=== PATIENT | female | born 1930 | race Caucasian/White ===

== ENCOUNTER 2018-01-18 21:21 | Emergency (ER) | payer OTHER ==
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
[2018-01-18 22:05] LABS: PLATELET COUNT 283 10^3/uL (150-400)
--- NOTE | 2018-01-18 22:45 | CPEKG ---
Test Reason : OPEN Blood Pressure : / mmHG Vent. Rate : 096 BPM Atrial Rate : 095 BPM P-R Int : 144 ms QRS Dur : 077 ms QT Int : 339 ms P-R-T Axes : 055 -21 040 degrees QTc Int : 429 ms Sinus rhythm Probable left atrial enlargement Borderline left axis deviation Abnormal R-wave progression, early transition Confirmed by Yahaira Barboza ([id number]) on 01/18/2018 10:45:05 PM Referred By: Confirmed By:Yahaira Barboza
[2018-01-18 23:54] VITALS: BP 170/87
== END 2018-01-18 23:55 | disposition home or self-care (01) ==
LOC: EDUNIT#
DX: R41.0 Disorientation, unspecified (principal); V89.2XXA Person injured in unspecified motor-vehicle accident, traffic, initial encounter; Y92.410 Unspecified street and highway as the place of occurrence of the external cause